=== PATIENT | female | born 1970 | race African-American/Black ===

== ENCOUNTER 2016-09-10 03:22 | Emergency (ER) | payer OTHER ==
[~2016-09-10] VITALS: Ht 157.5 cm; Wt 109.2 kg
[~2016-09-10 03:22] MED LIST: ACYCLOVIR200 MG PO; ALBUTEROL2.5 MG/3 M IH; ALLEGRA180 MG PO; AMLODIPINE BESYL5 MG PO; ASPIR-TRIN325 M1 PO; CETIRIZINE HCL10 M2 PO; CLARITIN5 MG PO; DICYCLOMINE HCL20 MG PO; ENDOCET 5-3251 EACH PO; FLEXERIL5 MG PO; FLONASE16 G1 NS; HYCODAN SYRUP480 ML PO; IRON325 MG PO; MONTELUKAST SOD10 MG PO; MOTRIN800 MG PO; MULTIVITAMIN1 EAC1 PO; NAPROXEN500 MG PO; PREDNISONE20 MG PO; TOPIRAMATE100 MG PO; VENTOLIN HFA18 GM IH; VIGAMOX 0.60 DROP/3 BOTH EYES; ZITHROMAX Z-PA250 MG PO
[2016-09-10 04:03] LABS: EOSINOPHIL (%) 0.5 % (0-5); EOSINOPHIL COUNT 0.1 K/uL (0-0.3); HEMATOCRIT 34.8 % (36.0-46.0); IMMATURE GRANULOCYTE (%) 0.2 % (0.0-0.7); IMMATURE GRANULOCYTE COUNT 0.2 K/uL; LYMPHOCYTE COUNT 1.3 K/uL (1.0-2.8); MCH 28.5 PG (29.0-34.0); MCHC 33.9 G/DL (30.0-36.0); MCV 84.1 FL (83-99); MEAN PLAT.VOLUME 8.9 uM^3 (9.5-12.4); MONOCYTE (%) 12.9 % (3-12); MONOCYTE COUNT 1.4 K/uL (0-0.8); NEUTROPHIL (%) 74.2 % (45-76); NEUTROPHIL COUNT 8.1 K/uL (1.8-6.4); PLATELET COUNT 424 K/uL (156-360); RBC DIS.WIDTH-SD 42.2 % (39-53); RED BLOOD COUNT 4.14 M/uL (3.80-5.20)
[2016-09-10 04:15] LABS: CHLORIDE 107 mEq/L (99-109); POTASSIUM 3.6 mEq/L (3.7-5.4); SODIUM 135 mEq/L (136-147)
[2016-09-10 04:17] LABS: GLUCOSE 120 mg/dL (70-99)
[2016-09-10 04:19] LABS: ANION GAP 10 MEQ/L (2-14); TOTAL BILIRUBIN 0.3 mg/dL (0.0-1.0)
[2016-09-10 04:21] LABS: ALKALINE PHOSPHATASE 52 IU/L (3-129); GFR ESTIMATE (CALCULATED) > 59 mL/min/
[2016-09-10 04:22] LABS: UREA NITROGEN (BUN) 7 mg/dL (9-23)
[2016-09-10 04:30] LABS: QUANTITATIVE HCG < 4.0 MIU/ML
[2016-09-10 04:32] LABS: INFLUENZA A VIRAL ANTIGEN NEGATIVE; INFLUENZA B VIRAL ANTIGEN NEGATIVE
[2016-09-10] MEDS ORDERED: LEVAQUIN750 MG PO (04:58)
[2016-09-10] MEDS ORDERED: PREDNISONE20 MG PO (04:58)
[2016-09-10 06:49] VITALS: BP 128/71
== END 2016-09-10 06:50 | disposition home or self-care (01) ==
LOC: EME 03:22
PROVIDERS: Emergency Medicine
DX: J20.9 Acute bronchitis, unspecified (principal); B34.9 Viral infection, unspecified; R50.9 Fever, unspecified
CPT/HCPCS: 71020; 80053; 84702; 85025; 87502; 94640; 99281; 99285; J1885; J2930; J7030

== ENCOUNTER 2017-01-09 22:50 | Emergency (ER) | payer OTHER ==
[~2017-01-09] VITALS: Ht 157.5 cm; Wt 109.1 kg
[~2017-01-09 22:50] MED LIST changes: +LEVAQUIN750 MG PO
[2017-01-10] MEDS ORDERED: NAPROSYN500 MG PO (01:18)
[2017-01-10 01:23] VITALS: BP 143/67
== END 2017-01-10 01:29 | disposition home or self-care (01) ==
LOC: EME 22:50
DX: M25.552 Pain in left hip (principal); G89.11 Acute pain due to trauma; V49.40XA Driver injured in collision with unspecified motor vehicles in traffic accident, initial encounter
CPT/HCPCS: 73502; 99281; 99283

== ENCOUNTER 2017-01-21 20:34 | Emergency (ER) | payer OTHER ==
[~2017-01-21] VITALS: Ht 157.5 cm; Wt 113.4 kg
[~2017-01-21 20:34] MED LIST changes: +NAPROSYN500 MG PO
[2017-01-21 20:52] VITALS: BP 136/89
== END 2017-01-21 22:00 | disposition left against medical advice (07) ==
LOC: EME 20:34
DX: M25.559 Pain in unspecified hip (principal); Z53.21 Procedure and treatment not carried out due to patient leaving prior to being seen by health care provider

== ENCOUNTER 2017-04-13 15:37 | Emergency (ER) | payer OTHER ==
[~2017-04-13] VITALS: Ht 157.5 cm; Wt 109.6 kg
[2017-04-13 17:22] LABS: HEMATOCRIT 37.7 % (36.0-46.0); MCH 28.1 PG (29.0-34.0); MCHC 33.4 G/DL (30.0-36.0); MCV 84.2 FL (83-99); MEAN PLAT.VOLUME 9.1 uM^3 (9.5-12.4); PLATELET COUNT 612 K/uL (156-360); RBC DIS.WIDTH-CV 14.1 % (11.8-14.6); RBC DIS.WIDTH-SD 43.2 % (39-53); RED BLOOD COUNT 4.48 M/uL (3.80-5.20); WHITE BLOOD COUNT 15.3 K/uL (4.1-10.2)
[2017-04-13 17:30] LABS: CHLORIDE 111 mEq/L (99-109); POTASSIUM 3.1 mEq/L (3.7-5.4); SODIUM 140 mEq/L (136-147)
[2017-04-13 17:31] LABS: GLUCOSE 89 mg/dL (70-99)
[2017-04-13 17:33] LABS: ANION GAP 9 MEQ/L (2-14)
[2017-04-13 17:35] LABS: GFR ESTIMATE (CALCULATED) > 59 mL/min/
[2017-04-13 17:36] LABS: UREA NITROGEN (BUN) 8 mg/dL (9-23)
[2017-04-13 17:43] LABS: TROP-I INTERPRETATION NEGATIVE; TROPONIN-I < 0.01 ng/mL (0.0-0.30)
[2017-04-13] MEDS ORDERED: TESSALON PERLE100 MG PO (17:51)
[2017-04-13] MEDS ORDERED: ZOFRAN ODT4 MG PO (17:51)
[2017-04-13 18:04] VITALS: BP 136/72
== END 2017-04-13 18:05 | disposition home or self-care (01) ==
LOC: EME 15:37
DX: J06.9 Acute upper respiratory infection, unspecified (principal); J32.9 Chronic sinusitis, unspecified; B34.9 Viral infection, unspecified; G43.909 Migraine, unspecified, not intractable, without status migrainosus
CPT/HCPCS: 71020; 80048; 84484; 85027; 93005; 99281; 99284

== ENCOUNTER 2017-06-01 10:33 | Day surgery (SDC) | payer OTHER ==
[~2017-06-01] VITALS: Ht 157.5 cm; Wt 108.4 kg
[~2017-06-01 10:33] MED LIST changes: +ALLEGRA ALLERG180 MG PO; +AMLODIPINE BESY10 MG PO; +CLINORIL200 MG PO; +OXYCODONE-APAP1 EAC6 PO; +SINGULAIR10 MG PO; +TESSALON PERLE100 MG PO; +TOPAMAX100 MG PO; +ZOFRAN ODT4 MG PO
== END 2017-06-01 12:20 | disposition home or self-care (01) ==
LOC: PAIN 10:33 → SDC 11:15 → PAIN 12:20
DX: M47.816 Spondylosis without myelopathy or radiculopathy, lumbar region (principal); M54.5 Low back pain; G89.29 Other chronic pain; M16.0 Bilateral primary osteoarthritis of hip; J45.909 Unspecified asthma, uncomplicated; E55.9 Vitamin D deficiency, unspecified; I10 Essential (primary) hypertension; E66.01 Morbid (severe) obesity due to excess calories; Z68.41 Body mass index [BMI] 40.0-44.9, adult; Z79.891 Long term (current) use of opiate analgesic; Z88.2 Allergy status to sulfonamides
CPT/HCPCS: 84132; J1030; J2250; J3010; S0020

== ENCOUNTER 2017-06-28 12:43 | Emergency (ER) | payer OTHER ==
[~2017-06-28] VITALS: Ht 157.5 cm; Wt 110.3 kg
[~2017-06-28 12:43] MED LIST changes: +LISINOPRIL10 MG PO
[2017-06-28] MEDS ORDERED: LIDODERM 5% P1 PATCH TD (15:09)
[2017-06-28 15:40] VITALS: BP 112/92
== END 2017-06-28 15:45 | disposition home or self-care (01) ==
LOC: EME 12:43
DX: M17.12 Unilateral primary osteoarthritis, left knee (principal); M25.552 Pain in left hip; Z88.2 Allergy status to sulfonamides; Z88.1 Allergy status to other antibiotic agents
CPT/HCPCS: 73502; 73564; 99281; 99283; J1885

== ENCOUNTER 2017-06-29 10:08 | Day surgery (SDC) | payer OTHER ==
[~2017-06-29] VITALS: Ht 157.5 cm; Wt 108.4 kg
[~2017-06-29 10:08] MED LIST changes: +LIDODERM 5% P1 PATCH TD
== END 2017-06-29 12:12 | disposition home or self-care (01) ==
LOC: PAIN 10:08
DX: M47.816 Spondylosis without myelopathy or radiculopathy, lumbar region (principal); M16.0 Bilateral primary osteoarthritis of hip; E66.01 Morbid (severe) obesity due to excess calories; Z68.41 Body mass index [BMI] 40.0-44.9, adult; M17.0 Bilateral primary osteoarthritis of knee; I10 Essential (primary) hypertension; E55.9 Vitamin D deficiency, unspecified; Z90.49 Acquired absence of other specified parts of digestive tract; Z90.710 Acquired absence of both cervix and uterus
CPT/HCPCS: 80048; J1030; J2250; J3010; S0020

== ENCOUNTER 2017-11-10 10:37 | Day surgery (SDC) | payer OTHER ==
[~2017-11-10] VITALS: Ht 157.5 cm; Wt 106.6 kg
[~2017-11-10 10:37] MED LIST changes: +AMOXICILLIN875 MG PO; +RELAFEN500 M1 PO
== END 2017-11-10 11:40 | disposition home or self-care (01) ==
LOC: PAIN 10:37
PROC: BR161ZZ Fluoroscopy of Lumbar Facet Joint(s) using Low Osmolar Contrast (ICD-10-PCS; principal; 2017-11-10)
PROC: 3E0T3TZ Introduction of Destructive Agent into Peripheral Nerves and Plexi, Percutaneous Approach (ICD-10-PCS; principal; 2017-11-10)
DX: M47.816 Spondylosis without myelopathy or radiculopathy, lumbar region (principal); I10 Essential (primary) hypertension; E66.9 Obesity, unspecified; M17.0 Bilateral primary osteoarthritis of knee; E55.9 Vitamin D deficiency, unspecified; Z88.5 Allergy status to narcotic agent
CPT/HCPCS: J1030; J2250; S0020

== ENCOUNTER 2017-11-17 10:33 | Day surgery (SDC) | payer OTHER ==
[~2017-11-17] VITALS: Ht 157.5 cm; Wt 106.6 kg
== END 2017-11-17 13:10 | disposition home or self-care (01) ==
LOC: PAIN 10:33 → SDC 11:00 → PAIN 11:00
DX: M47.816 Spondylosis without myelopathy or radiculopathy, lumbar region (principal); M17.0 Bilateral primary osteoarthritis of knee; I10 Essential (primary) hypertension; E55.9 Vitamin D deficiency, unspecified; G43.909 Migraine, unspecified, not intractable, without status migrainosus
CPT/HCPCS: J1030; J2250; S0020